=== PATIENT | female | born 1955 | race Two or more races ===

== ENCOUNTER → 2017-04-11 | Outpatient (CLI) | payer OTHER ==
[~2017-04-11] MED LIST: CELEBREX200MG PO; SKELAXIN800 MG PO
== END | disposition home or self-care (01) ==
LOC: NUCLEAR 10:08
DX: Z85.3 Personal history of malignant neoplasm of breast (principal); R19.03 Right lower quadrant abdominal swelling, mass and lump; Z87.891 Personal history of nicotine dependence; Z17.0 Estrogen receptor positive status [ER+]
CPT/HCPCS: 78815; A9552

== ENCOUNTER 2018-01-18 09:39 | Outpatient (CLI) | payer OTHER | END 2018-01-18 09:48 | disposition home or self-care (01) | LOC: NUCLEAR 09:39 | DX: C50.412 Malignant neoplasm of upper-outer quadrant of left female breast (principal); C79.51 Secondary malignant neoplasm of bone | CPT/HCPCS: 78306; A9503 ==

== ENCOUNTER 2018-09-14 02:56 | Emergency (ER) | payer OTHER ==
[~2018-09-14] VITALS: Ht 162.6 cm; Wt 69.9 kg
[2018-09-14] MEDS ORDERED: MAXZIDE 37.5 M1 EACH (03:13)
[2018-09-14] MEDS ORDERED: NORVASC10 MG (03:13)
== END 2018-09-14 09:37 | disposition home or self-care (01) ==
LOC: ER 02:56
DX: R20.2 Paresthesia of skin (principal); I10 Essential (primary) hypertension

== ENCOUNTER → 2018-11-02 | Outpatient (CLI) | payer OTHER ==
[~2018-11-02] MED LIST changes: +MAXZIDE 37.5 M1 EACH; +NORVASC10 MG
== END | disposition home or self-care (01) ==
LOC: RAD 14:42
DX: M25.561 Pain in right knee (principal); M25.552 Pain in left hip; M54.5 Low back pain

== ENCOUNTER 2018-12-05 10:41 | Outpatient (CLI) | payer OTHER | END 2018-12-05 17:00 | disposition home or self-care (01) | LOC: MRI 10:41 | DX: M25.562 Pain in left knee (principal) | CPT/HCPCS: 73721 ==

== ENCOUNTER 2018-12-24 14:51 | Emergency (ER) | payer OTHER ==
[~2018-12-24] VITALS: Ht 162.6 cm; Wt 63.5 kg
== END 2018-12-24 18:41 | disposition home or self-care (01) ==
LOC: ER 14:51
DX: S74.01XA Injury of sciatic nerve at hip and thigh level, right leg, initial encounter (principal); X50.0XXA Overexertion from strenuous movement or load, initial encounter; Y93.B2 Activity, push-ups, pull-ups, sit-ups; Y92.89 Other specified places as the place of occurrence of the external cause; Y99.8 Other external cause status

== ENCOUNTER 2019-01-08 12:33 | Emergency (ER) | payer OTHER ==
[~2019-01-08] VITALS: Ht 157.5 cm; Wt 66.7 kg
[2019-01-08] MEDS ORDERED: VOLTAREN-XR100 MG PO (16:39)
[2019-01-08] MEDS ORDERED: DIAZEPAM5 MG PO (16:39)
[2019-01-08] MEDS ORDERED: ULTRAM50 MG PO (16:39)
== END 2019-01-08 17:05 ==
LOC: ER 12:33
DX: M54.41 Lumbago with sciatica, right side (principal); M25.551 Pain in right hip

== ENCOUNTER → 2019-01-11 | Outpatient (CLI) | payer OTHER ==
[~2019-01-11] MED LIST changes: +DIAZEPAM5 MG PO; +ULTRAM50 MG PO; +VOLTAREN-XR100 MG PO
== END | disposition home or self-care (01) ==
LOC: MRI 09:15
DX: M54.41 Lumbago with sciatica, right side (principal); M25.551 Pain in right hip
CPT/HCPCS: 72195; 73721

== ENCOUNTER → 2019-01-17 14:07 | Outpatient (CLI) | payer OTHER | END | disposition home or self-care (01) | LOC: LAB 14:07 | DX: M54.16 Radiculopathy, lumbar region (principal) ==

== ENCOUNTER → 2019-01-19 | Outpatient (CLI) | payer OTHER | END | disposition home or self-care (01) | LOC: MRI 01-11 10:15 | DX: M54.5 Low back pain (principal); M54.16 Radiculopathy, lumbar region | CPT/HCPCS: 72158 ==

== ENCOUNTER 2019-03-12 07:34 | Outpatient (CLI) | payer OTHER | END 2019-03-12 09:00 | disposition home or self-care (01) | LOC: NUCLEAR 07:34 | DX: C50.412 Malignant neoplasm of upper-outer quadrant of left female breast (principal) | CPT/HCPCS: 78306; A9503 ==

== ENCOUNTER 2019-03-20 09:18 | Outpatient (CLI) | payer OTHER | END 2019-03-20 09:36 | disposition home or self-care (01) | LOC: SONOGRAMA 09:18 | DX: C50.412 Malignant neoplasm of upper-outer quadrant of left female breast (principal); Z85.3 Personal history of malignant neoplasm of breast; Z12.31 Encounter for screening mammogram for malignant neoplasm of breast; Z87.898 Personal history of other specified conditions ==

== ENCOUNTER → 2019-12-19 12:47 | Outpatient (CLI) | payer OTHER | END | disposition home or self-care (01) | LOC: LAB 12:47 | PROVIDERS: ATTEND Radiology Diagnostic Radiology | DX: N20.0 Calculus of kidney (principal) ==

== ENCOUNTER 2019-12-21 13:45 | Outpatient (CLI) | payer OTHER | END 2019-12-21 13:48 | disposition home or self-care (01) | LOC: RAD 13:45 | PROVIDERS: ATTEND Specialist | DX: M25.561 Pain in right knee (principal) ==

== ENCOUNTER 2020-01-01 08:13 | Outpatient (CLI) | payer OTHER | END 2020-01-01 08:19 | disposition home or self-care (01) | LOC: TOM 08:13 | PROVIDERS: ATTEND Specialist | DX: R10.10 Upper abdominal pain, unspecified (principal) | CPT/HCPCS: 74177; Q9965 ==

== ENCOUNTER 2020-02-14 09:31 | Outpatient (CLI) | payer OTHER | END 2020-02-14 09:39 | disposition home or self-care (01) | LOC: MRI 09:31 | PROVIDERS: ATTEND Specialist | DX: M43.17 Spondylolisthesis, lumbosacral region (principal); M54.5 Low back pain; M54.16 Radiculopathy, lumbar region | CPT/HCPCS: 72158; A9575 ==

== ENCOUNTER 2022-02-13 17:06 | Emergency (ER) | payer OTHER ==
[~2022-02-13] VITALS: Ht 162.6 cm; Wt 65.8 kg
[2022-02-13] MEDS ORDERED: GLUMETZA500 MG PO (17:46)
[2022-02-13] MEDS ORDERED: GABAPENTIN800 M1 PO (17:47)
[2022-02-13] MEDS ORDERED: NORVASC10 MG PO (17:47)
== END 2022-02-13 22:44 | disposition home or self-care (01) ==
LOC: ER 17:06
DX: J40 Bronchitis, not specified as acute or chronic (principal); A49.3 Mycoplasma infection, unspecified site; E11.9 Type 2 diabetes mellitus without complications; Z79.84 Long term (current) use of oral hypoglycemic drugs; I10 Essential (primary) hypertension; Z20.822 Contact with and (suspected) exposure to COVID-19

== ENCOUNTER 2022-02-14 12:44 | Emergency (ER) | payer OTHER ==
[~2022-02-14] VITALS: Ht 162.6 cm; Wt 65.8 kg
[~2022-02-14 12:44] MED LIST changes: +GABAPENTIN800 M1 PO; +GLUMETZA500 MG PO; +NORVASC10 MG PO
== END 2022-02-14 17:12 | disposition home or self-care (01) ==
LOC: ER 12:44
DX: J40 Bronchitis, not specified as acute or chronic (principal); R91.8 Other nonspecific abnormal finding of lung field; Z85.3 Personal history of malignant neoplasm of breast; E11.9 Type 2 diabetes mellitus without complications; Z79.84 Long term (current) use of oral hypoglycemic drugs; Z87.891 Personal history of nicotine dependence

== ENCOUNTER 2022-03-08 07:56 | Outpatient (CLI) | payer OTHER | END 2022-03-08 07:58 | disposition home or self-care (01) | LOC: NUCLEAR 07:56 | PROVIDERS: ATTEND Internal Medicine Hematology & Oncology | DX: C34.11 Malignant neoplasm of upper lobe, right bronchus or lung (principal); C77.1 Secondary and unspecified malignant neoplasm of intrathoracic lymph nodes; Z85.3 Personal history of malignant neoplasm of breast | CPT/HCPCS: 78816; A9552 ==

== ENCOUNTER 2022-03-23 08:55 | Outpatient (CLI) | payer OTHER | END 2022-03-23 09:12 | disposition home or self-care (01) | LOC: MRI 08:55 | PROVIDERS: ATTEND Internal Medicine Hematology & Oncology | DX: G44.001 Cluster headache syndrome, unspecified, intractable (principal); C50.412 Malignant neoplasm of upper-outer quadrant of left female breast | CPT/HCPCS: 70551 ==

== ENCOUNTER 2022-04-02 16:10 | Inpatient (IN) | payer OTHER ==
[~2022-04-02] VITALS: Ht 162.6 cm; Wt 62.6 kg
--- NOTE | 2022-04-02 16:17 | NUR ---
PTE ALERTA,ESTABLE Y ORIENTADA.ESTA [facility] POR DIFICULTADA RESPITATORIA.P
[2022-04-05] MEDS ORDERED: ALKA-SELTZER O1 EACH (09:10)
[2022-04-05] MEDS ORDERED: DEXAMETHASONE4 MG (09:10)
[2022-04-05] MEDS ORDERED: ANORO ELLIPTA1 EACH (09:10)
[2022-04-05] MEDS ORDERED: VOLTAREN ARTHRI20 GM (09:11)
[2022-04-05] MEDS ORDERED: BUPROPION XL150 MG (09:11)
[2022-04-05] MEDS ORDERED: TRIAMTERENE-HC1 EAC1 (09:11)
[2022-04-05] MEDS ORDERED: CENTRUM SILVER1 EAC2 (09:11)
[2022-04-12] MEDS ORDERED: ELIQUIS5 MG PO (11:13)
[2022-04-12] MEDS ORDERED: AMLODIPINE BESY10 MG PO (11:13)
[2022-04-12] MEDS ORDERED: RESTORIL15 MG PO (11:14)
[2022-04-12] MEDS ORDERED: PROMETHAZINE W473 ML PO (11:15)
[2022-04-12] MEDS ORDERED: TUSSIN DM LIQU118 ML PO (11:15)
[2022-04-12] MEDS ORDERED: FAMOTIDINE20 MG PO (11:16)
[2022-04-12] MEDS ORDERED: APETIGEN P12.5 MG/15 PO (11:17)
[2022-04-12] MEDS ORDERED: DEXAMETHASONE4 MG PO (11:17)
[2022-04-12] MEDS ORDERED: PROTEINEX-18 LI30 ML PO (11:18)
== END 2022-04-12 15:12 | disposition home or self-care (01) | DRG 180 ==
LOC: ER 16:10 → SEC-K 18:55 → SURH 18:55
PROVIDERS: ADMIT Internal Medicine Hematology & Oncology; ATTEND Internal Medicine Hematology & Oncology
DX: C34.91 Malignant neoplasm of unspecified part of right bronchus or lung (principal); J18.9 Pneumonia, unspecified organism; J44.1 Chronic obstructive pulmonary disease with (acute) exacerbation; I82.210 Acute embolism and thrombosis of superior vena cava; E87.6 Hypokalemia; R09.02 Hypoxemia; I12.9 Hypertensive chronic kidney disease with stage 1 through stage 4 chronic kidney disease, or unspecified chronic kidney disease; N18.9 Chronic kidney disease, unspecified; D63.1 Anemia in chronic kidney disease; E11.22 Type 2 diabetes mellitus with diabetic chronic kidney disease; Z79.4 Long term (current) use of insulin; F17.210 Nicotine dependence, cigarettes, uncomplicated; D63.0 Anemia in neoplastic disease

== ENCOUNTER 2022-05-03 08:54 | Outpatient (CLI) | payer OTHER ==
[~2022-05-03 08:54] MED LIST changes: +ALKA-SELTZER O1 EACH; +AMLODIPINE BESY10 MG PO; +ANORO ELLIPTA1 EACH; +APETIGEN P12.5 MG/15 PO; +BUPROPION XL150 MG; +CENTRUM SILVER1 EAC2; +DEXAMETHASONE4 MG; +DEXAMETHASONE4 MG PO; +ELIQUIS5 MG PO; +FAMOTIDINE20 MG PO; +PROMETHAZINE W473 ML PO; +PROTEINEX-18 LI30 ML PO; +RESTORIL15 MG PO; +TRIAMTERENE-HC1 EAC1; +TUSSIN DM LIQU118 ML PO; +VOLTAREN ARTHRI20 GM
== END 2022-05-03 08:58 | disposition home or self-care (01) ==
LOC: TOM 08:54
PROVIDERS: ATTEND Internal Medicine Gastroenterology
DX: D02.20 Carcinoma in situ of unspecified bronchus and lung (principal); R53.1 Weakness
CPT/HCPCS: 70460; 71260; 72132; Q9965

== ENCOUNTER 2022-06-01 14:25 | Emergency (ER) | payer OTHER ==
[~2022-06-01] VITALS: Ht 160 cm; Wt 70.8 kg
[~2022-06-01 14:25] MED LIST changes: +PEPC PO
[2022-06-01] MEDS ORDERED: TRAM1TAB98 PO (20:21)
== END 2022-06-01 20:43 | disposition home or self-care (01) ==
LOC: ER 14:25
DX: M54.50 Low back pain, unspecified (principal)

== ENCOUNTER 2022-06-03 10:05 | Emergency (ER) | payer OTHER ==
[~2022-06-03] VITALS: Ht 162.6 cm; Wt 62.6 kg
[~2022-06-03 10:05] MED LIST changes: +TRAM1TAB98 PO
== END 2022-06-03 15:48 | disposition home or self-care (01) ==
LOC: ER 10:05
DX: M54.50 Low back pain, unspecified (principal); C34.90 Malignant neoplasm of unspecified part of unspecified bronchus or lung; E11.9 Type 2 diabetes mellitus without complications; Z79.84 Long term (current) use of oral hypoglycemic drugs; I10 Essential (primary) hypertension

== ENCOUNTER 2022-06-08 08:37 | Outpatient (CLI) | payer OTHER | END 2022-06-08 08:40 | disposition home or self-care (01) | LOC: LAB 08:37 | PROVIDERS: ATTEND Specialist | DX: Z11.52 Encounter for screening for COVID-19 (principal) ==

== ENCOUNTER 2022-06-10 06:58 | Day surgery (SDC) | payer OTHER | END 2022-06-10 14:45 | disposition home or self-care (01) | LOC: CIR.AMB 06:58 | PROVIDERS: ATTEND Specialist | DX: C34.91 Malignant neoplasm of unspecified part of right bronchus or lung (principal); Z20.822 Contact with and (suspected) exposure to COVID-19; I10 Essential (primary) hypertension; E78.00 Pure hypercholesterolemia, unspecified; F12.10 Cannabis abuse, uncomplicated; E11.21 Type 2 diabetes mellitus with diabetic nephropathy ==

== ENCOUNTER 2022-06-26 02:24 | Emergency (ER) | payer OTHER ==
[~2022-06-26] VITALS: Ht 162.6 cm; Wt 63.0 kg
== END 2022-06-26 07:40 | disposition home or self-care (01) ==
LOC: ER 02:24
DX: R10.9 Unspecified abdominal pain (principal); Z85.9 Personal history of malignant neoplasm, unspecified; E11.9 Type 2 diabetes mellitus without complications

== ENCOUNTER 2022-07-09 06:38 | Inpatient (IN) | payer OTHER ==
[~2022-07-09] VITALS: Ht 162.6 cm; Wt 63.0 kg
[2022-07-09] MEDS ORDERED: MS CONTIN15 M1 (06:51)
--- NOTE | 2022-07-09 06:53 | NUR ---
PTE ALERTA Y ORIENTADA X3 EN COMPANIA DE FAMILIAR. PTE REFIERE DOLOR ABDOMINAL DESDE LAS 8:00PM DEL NERY DE NAGI.
--- NOTE | 2022-07-09 07:33 | NUR ---
SE RECIBE PTE FEMENAINDE 67 YRS ALERTA CONCIENTE Y TRANQUILA ,PTE ES EVALUADA POR EL ,FALGUNI QUEI ORDENA TRATAMIENTO LA CUAL SE EJECUTA POR MICH JACOBS RN. SE MANTIENE BAJO OBSERVACION.
--- NOTE | 2022-07-09 15:02 | NUR ---
SE RECIBE PTE FEMENINA DE 67 ANOS ALERTA Y ORIENTADO X3 QUIEN AL MOMENTO NO REFIERE DOLOR. PTE AL MOMENTO EN DESCANO EN CAMA PEND POR CONSULTA CON DR GATICA.
== END 2022-07-10 12:06 | disposition home or self-care (01) | DRG 639 ==
LOC: ER 06:38 → MEDJ 18:01
PROVIDERS: ADMIT Internal Medicine Hematology & Oncology; ATTEND Internal Medicine Hematology & Oncology
PROC: BW21ZZZ Computerized Tomography (CT Scan) of Abdomen and Pelvis (ICD-10-PCS; principal; 2022-07-09)
DX: E11.65 Type 2 diabetes mellitus with hyperglycemia (principal); Z78.9 Other specified health status; F17.210 Nicotine dependence, cigarettes, uncomplicated; D72.828 Other elevated white blood cell count

== ENCOUNTER 2022-07-14 06:57 | Emergency (ER) | payer OTHER ==
[~2022-07-14] VITALS: Ht 162.6 cm; Wt 62.6 kg
[~2022-07-14 06:57] MED LIST changes: +MS CONTIN15 M1
== END 2022-07-14 16:52 | disposition home or self-care (01) ==
LOC: ER 06:57
DX: R10.84 Generalized abdominal pain (principal); C22.9 Malignant neoplasm of liver, not specified as primary or secondary; I10 Essential (primary) hypertension

== ENCOUNTER 2022-08-03 13:50 | Inpatient (IN) | payer OTHER ==
[~2022-08-03] VITALS: Ht 162.6 cm; Wt 63.5 kg
--- NOTE | 2022-08-03 14:04 | NUR ---
PTE ALERTA,ESTABLE Y ORIENTADA.ESTA REFIERE QUE DESDE VARIOS FERREIRA COMENZO CON EL DOLOR DE ABD.
--- NOTE | 2022-08-03 17:40 | NUR ---
SE ORIENTA PACIENTE SOBRE EL [place] [facility] [place] CAROLE REFIERE ENTENDER. SE CANALIZA Y SE ADMINITRES MEDS RY ORDEN MEDICA. SE TRI MUESTRAS DE RUDDY Y SE ENVIAN. SE INSERTA BURGOS.
[2022-08-05] MEDS ORDERED: ELIQUIS5 MG (14:16)
[2022-08-05] MEDS ORDERED: RESTORIL15 MG (14:16)
[2022-08-05] MEDS ORDERED: TRAMADOL HCL50 MG (14:16)
[2022-08-05] MEDS ORDERED: FENTANYL1 EAC3 (14:16)
[2022-08-05] MEDS ORDERED: ANORO ELLIPTA1 EACH (14:16)
[2022-08-05] MEDS ORDERED: PANTOPRAZOLE SO40 MG (14:16)
[2022-08-05] MEDS ORDERED: TRIAMTERENE-HC1 EAC1 (14:17)
[2022-08-05] MEDS ORDERED: BUPROPION HCL150 M1 (14:17)
== END 2022-08-19 07:46 | disposition expired | DRG 190 ==
LOC: ER 13:50 → MEDJ 19:07
PROVIDERS: ADMIT Internal Medicine Hematology & Oncology; ATTEND Internal Medicine Hematology & Oncology
PROC: 3E0F7SF Introduction of Other Gas into Respiratory Tract, Via Natural or Artificial Opening (ICD-10-PCS; principal; 2022-08-03)
PROC: 4A12X4Z Monitoring of Cardiac Electrical Activity, External Approach (ICD-10-PCS; 2022-08-06)
PROC: 5A0945A Assistance with Respiratory Ventilation, 24-96 Consecutive Hours, High Flow/Velocity Cannula (ICD-10-PCS; 2022-08-06)
PROC: 5A09457 Assistance with Respiratory Ventilation, 24-96 Consecutive Hours, Continuous Positive Airway Pressure (ICD-10-PCS; 2022-08-10)
DX: J44.1 Chronic obstructive pulmonary disease with (acute) exacerbation (principal); J96.01 Acute respiratory failure with hypoxia; C34.11 Malignant neoplasm of upper lobe, right bronchus or lung; C79.51 Secondary malignant neoplasm of bone; J91.8 Pleural effusion in other conditions classified elsewhere; E87.4 Mixed disorder of acid-base balance; E87.1 Hypo-osmolality and hyponatremia; I87.1 Compression of vein; E09.65 Drug or chemical induced diabetes mellitus with hyperglycemia; T38.0X5A Adverse effect of glucocorticoids and synthetic analogues, initial encounter; Z66 Do not resuscitate; G89.3 Neoplasm related pain (acute) (chronic); E86.0 Dehydration; E83.42 Hypomagnesemia; F43.22 Adjustment disorder with anxiety; Z79.60 Long term (current) use of unspecified immunomodulators and immunosuppressants; Z79.4 Long term (current) use of insulin; Z79.84 Long term (current) use of oral hypoglycemic drugs